=== PATIENT | female | born 1980 | race Caucasian/White ===

== ENCOUNTER → 2017-05-04 | Outpatient (CLI) | payer OTHER ==
[~2017-05-04] MED LIST: DICLEGIS PO; IBU600 MG PO; MOTRIN 600600 MG/TAB PO; PEPCID AC 10MG10 MG PO; PERCOCET 325 MG1 TA2 PO; PRENATAL1 TA1 PO; PULMICORT180 MCG/Ac IH; TUMS500 MG PO; ZANTAC 150150 MG PO; ZOFRAN 4MG T4 MG/TAB PO
== END ==
LOC: SUN.DIA 11:30
DX: O24.419 Gestational diabetes mellitus in pregnancy, unspecified control (principal); Z3A.30 30 weeks gestation of pregnancy; Z71.3 Dietary counseling and surveillance
CPT/HCPCS: G0108

== ENCOUNTER → 2017-05-18 | Outpatient (CLI) | payer OTHER | LOC: SUN.DIA 14:37 | DX: O24.419 Gestational diabetes mellitus in pregnancy, unspecified control (principal); Z3A.32 32 weeks gestation of pregnancy; Z71.3 Dietary counseling and surveillance | CPT/HCPCS: G0108 ==

== ENCOUNTER 2017-05-25 10:48 | Inpatient (IN) | payer OTHER ==
[~2017-05-25] VITALS: Ht 172.7 cm; Wt 101.1 kg
[~2017-05-25 10:48] MED LIST changes: -IBU600 MG PO; -ZANTAC 150150 MG PO
[2017-07-09] VITALS (48 sets, daily range): BP systolic 98–122; BP diastolic 52–78; PULSE 46–557; TEMP 97.6–98.7
[2017-07-09] MEDS ORDERED: ZANTAC 150150 MG PO (07:37)
[2017-07-09 08:08] LABS: BASO % 0.2 % (0.0-2.0); EOS % 0.6 % (0-4.0); GRAN # 4.6 (1.4-6.5); GRAN % 70.2 % (42.2-75.2); LYMPH # 1.5 (1.2-3.4); LYMPH % 22.5 % (20.0-51.0); MEAN CELL VOLUME 89 fl (80.0-100.0); MEAN CORPUSCULAR HGB CONC 33 g/dl (33.0-37.0); MEAN PLATELET VOLUME 12.7 fl (7.4-10.4); MONO # 0.4 (0.1-0.6); PLATELET COUNT 106 K/mm3 (130-400); RED BLOOD COUNT 3.57 M/mm3 (4.10-5.30); REDCELL DISTRIBUTION WIDTH-CV 13.8 % (11.5-14.5); WHITE BLOOD COUNT 6.5 K/mm3 (4.8-10.8)
[2017-07-09 08:09] LABS: HEMATOCRIT 31.8 % (37.0-47.0); HEMOGLOBIN 10.6 g/dl (12.5-16.0); MEAN CORPUSCULAR HEMOGLOBIN 30 pg (27.0-31.0)
[2017-07-10 07:00] VITALS: BP 102/43; PULSE 58; TEMP 98.2
[2017-07-10 11:30] VITALS: BP 103/63; PULSE 64; TEMP 98.3
[2017-07-10 16:07] VITALS: BP 110/68; PULSE 60; TEMP 98.5
[2017-07-10 21:00] VITALS: BP 109/54; PULSE 59; TEMP 98.1
[2017-07-11 06:55] VITALS: BP 104/61; PULSE 53; TEMP 97.8
[2017-07-11] MEDS ORDERED: PERCOCET 325 MG1 TA2 PO (10:21)
[2017-07-11] MEDS ORDERED: IBU600 MG PO (10:21)
== END 2017-07-11 11:50 | disposition home or self-care (01) | DRG 775 ==
LOC: LDR 07-09 06:55 → OB 07-09 18:15 → EDSTATUS 07-16 06:53 → LDRO 07-16 10:48
PROVIDERS: Obstetrics & Gynecology
PROC: 10E0XZZ Delivery of Products of Conception, External Approach (ICD-10-PCS; principal; 2017-07-09)
PROC: 3E033VJ Introduction of Other Hormone into Peripheral Vein, Percutaneous Approach (ICD-10-PCS; 2017-07-09)
DX: O48.0 Post-term pregnancy (principal); O36.0130 Maternal care for anti-D [Rh] antibodies, third trimester, not applicable or unspecified; O24.420 Gestational diabetes mellitus in childbirth, diet controlled; O69.81X0 Labor and delivery complicated by cord around neck, without compression, not applicable or unspecified; Z3A.40 40 weeks gestation of pregnancy; Z37.0 Single live birth
CPT/HCPCS: J2590; J2795; J7120